=== PATIENT | male | born 2000 | race African-American/Black ===

== ENCOUNTER 2019-07-17 00:31 | Emergency (ER) | payer OTHER ==
[~2019-07-17] VITALS: Ht 180.3 cm; Wt 82.7 kg
[2019-07-17 00:39] VITALS: BP 116/70
[2019-07-17] MEDS ORDERED: HYDROcodone/APAP 5/325 MG 1 TAB TAB PO ONE (01:15)
[2019-07-17] MEDS ORDERED: MORPHINE SULFATE 4 MG/ML SYR IVP ONE (01:25)
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
--- NOTE | 2019-07-17 02:16 | NUR ---
PT GIVEN ICE PACK TO APPLY TO TESTICLE. SOME RELIEF NOTED.
--- NOTE | 2019-07-17 02:52 | NUR ---
ULTRASOUND AT BEDSIDE.
--- NOTE | 2019-07-17 03:20 | NUR ---
PT STATES "I'M UNCOMFORTABLE BUT THE PAIN IS TOLERABLE." ALL NEEDS MET AT THIS TIME. WILL CONTINUE TO MONITOR FOR CHANGE IN CONDITION.
[2019-07-17 04:57] VITALS: BP 100/48
--- NOTE | 2019-07-17 05:00 | NUR ---
PT SEEN WITH EYES CLOSED. VISIBLE CHEST RISE AND FALL NOTED. VSS AT THIS TIME. PT SIGNIFICANT OTHER AT BEDSIDE. WILL CONTINUE TO MONITOR.
--- NOTE | 2019-07-17 05:28 | NUR ---
PT ABLE TO PROVIDE URINE SAMPLE. URINE OUTPUT YELLOW AND CLEAR.
[2019-07-17] MEDS ORDERED: KETOROLAC 15 MG/ML VIAL IVP ONE (05:40)
--- NOTE | 2019-07-17 05:50 | NUR ---
Patient discharged with v/s stable. Written and verbal after care instructions given and explained. Patient verbalized understanding. Ambulatory with steady gait. All questions addressed prior to discharge. Advised to follow up with PMD.
== END 2019-07-17 05:50 | disposition home or self-care (01) ==
LOC: MED 00:31
DX: S30.22XA Contusion of scrotum and testes, initial encounter (principal); X58.XXXA Exposure to other specified factors, initial encounter; Y92.89 Other specified places as the place of occurrence of the external cause; Y93.89 Activity, other specified; Y99.8 Other external cause status
CPT/HCPCS: 76870; 96374; 96375; 99284; J1885; J2270; Q0092